=== PATIENT | female | born 1985 | race Caucasian/White ===

== ENCOUNTER → 2018-04-20 | Outpatient (CLI) | payer OTHER ==
[~2018-04-20] MED LIST: OMNIPAQUE 350 MG/ML, 100ML BOTTLE ONE
== END | disposition home or self-care (01) ==
LOC: CFH 12:44
PROVIDERS: ATTEND Nurse Practitioner Family
DX: N85.2 Hypertrophy of uterus (principal); N13.30 Unspecified hydronephrosis; N28.1 Cyst of kidney, acquired; N83.201 Unspecified ovarian cyst, right side; N83.202 Unspecified ovarian cyst, left side
CPT/HCPCS: 74177; Q9967

== ENCOUNTER → 2018-05-03 | Outpatient (CLI) | payer OTHER ==
[~2018-05-03] MED LIST changes: +Auryxia PO; +HYDR-3653 PO; -OMNIPAQUE 350 MG/ML, 100ML BOTTLE ONE; +ONDA4TAB12 PO
[2018-05-03 12:48] LABS: BASOPHILS # (AUTO) 0.04 x10^3/uL (0-0.1); BASOPHILS % (AUTO) 1 % (0-1); EOSINOPHILS % (AUTO) 4 % (1-7); LYMPHOCYTES # (AUTO) 2.74 x10^3/uL (1-3.4); LYMPHOCYTES % (AUTO) 40 % (22-44); MD NO; MEAN CORPUSCULAR HEMOGLOBIN 24.4 pg (27.0-34.8); MEAN CORPUSCULAR HGB CONC 31.9 g/dL (32.4-35.8); MEAN CORPUSCULAR VOLUME 76.5 fL (80-100); MEAN PLATELET VOLUME 8.9 fL (7.4-10.4); MONOCYTES % (AUTO) 10 % (2-9); NEUTROPHILS # (AUTO) 3.12 x10^3/uL (1.8-6.8); NEUTROPHILS % (AUTO) 45 % (42-75); PLATELET COUNT 359 x10^3/uL (130-400); RED BLOOD COUNT 4.74 x10^6/uL (3.82-5.3); RED CELL DISTRIBUTION WIDTH 16.7 % (9.6-15.2)
[2018-05-03 12:53] LABS: INTERNATIONAL NORMALIZED RATIO 1.18 (0.93-1.1); PROTHROMBIN TIME 12.1 Seconds (9.6-11.5)
[2018-05-03 12:55] LABS: ANION GAP 7 mmol/L (5-15); CALCIUM 8.9 mg/dL (8.5-10.1); CHLORIDE 109 mmol/L (98-107)
[2018-05-03 13:04] LABS: ALANINE AMINOTRANSFERASE 21 U/L (12-78); ALKALINE PHOSPHATASE 49 U/L (45-117); BILIRUBIN,TOTAL 0.2 mg/dL (0.2-1.0)
== END | disposition home or self-care (01) ==
LOC: STAR 11:23
PROVIDERS: ATTEND Specialist
DX: Z01.818 Encounter for other preprocedural examination (principal); C55 Malignant neoplasm of uterus, part unspecified; D75.9 Disease of blood and blood-forming organs, unspecified
CPT/HCPCS: 36415; 80053; 83615; 84702; 85025; 85610; 85730

== ENCOUNTER → 2018-05-03 | Outpatient (CLI) | payer OTHER | END | disposition home or self-care (01) | LOC: CFH 12:58 | PROVIDERS: ATTEND Specialist | DX: C49.9 Malignant neoplasm of connective and soft tissue, unspecified (principal) | CPT/HCPCS: 71046 ==

== ENCOUNTER → 2018-05-06 | Outpatient (CLI) | payer OTHER ==
[~2018-05-06] MED LIST changes: +GADOBUTROL 10 MMOL/10 ML VIAL ONE
== END | disposition home or self-care (01) ==
LOC: RAD 10:29
PROVIDERS: ATTEND Specialist
DX: N13.30 Unspecified hydronephrosis (principal); Q61.01 Congenital single renal cyst
CPT/HCPCS: 72197; 74183; A9585

== ENCOUNTER 2018-05-10 09:14 | Inpatient (IN) | payer OTHER ==
[~2018-05-10] VITALS: Ht 167.6 cm; Wt 59.2 kg
[~2018-05-10 09:14] MED LIST changes: -GADOBUTROL 10 MMOL/10 ML VIAL ONE; -HYDR-3653 PO; -ONDA4TAB12 PO
[2018-05-10] MEDS ORDERED: FENTANYL PF 250 MCG/5ML ONE (10:19)
[2018-05-10] MEDS ORDERED: LACTATED RINGERS 1,000 ML IV SCH (10:21)
[2018-05-10] MEDS ORDERED: ACETAMINOPHEN 500 MG TABLET PO ONE (10:30)
[2018-05-10] MEDS ORDERED: SCOPOLAMINE PATCH, 1.5MG PATCH.TD72 TD ONE (10:30)
[2018-05-10] MEDS ORDERED: GABAPENTIN 300 MG CAPSULE PO ONE (10:30)
[2018-05-10] MEDS ORDERED: OXYcodone 5 MG/5 ML ORAL.SOL UDC PO PRN (11:00)
[2018-05-10] MEDS ORDERED: LABETALOL 5MG/ML, 20ML IV PRN (11:00)
[2018-05-10] MEDS ORDERED: HALOPERIDOL 5 MG/ML IV PRN (11:00)
[2018-05-10] MEDS ORDERED: PROCHLORPERAZINE 5 MG/ML, 2ML IV PRN (11:00)
[2018-05-10] MEDS ORDERED: hydrALAzine 20 MG/ML, 1ML IV PRN (11:00)
[2018-05-10] MEDS ORDERED: HYDROmorphone 1 MG/ML, 1ML IV PRN (11:00)
[2018-05-10] MEDS ORDERED: DIPHENHYDRAMINE 50 MG/ML, 1ML IVPush PRN (11:00)
[2018-05-10] MEDS ORDERED: MEPERIDINE/PF 25MG/0.5ML IVPush PRN (11:00)
[2018-05-10] MEDS ORDERED: VASOPRESSIN 20 UNIT/ML, 1ML ONE (11:45)
[2018-05-10] MEDS ORDERED: KETOROLAC 30 MG/1 ML IVPush PRN (14:00)
[2018-05-10] MEDS ORDERED: FENTANYL PF 100 MCG/2ML ONE (14:22)
[2018-05-10] MEDS ORDERED: OXYcodone 5 MG/5 ML ORAL.SOL UDC ONE (14:22)
[2018-05-10] MEDS ORDERED: KETOROLAC 30 MG/1 ML ONE (14:22)
[2018-05-10] MEDS: FENTANYL PF 100 MCG/2ML IV PRN ×2 (14:26→14:38)
[2018-05-10] MEDS ORDERED: morphine SULFATE 10 MG/ML, 1ML IV PRN (15:30)
[2018-05-10] MEDS ORDERED: POTASSIUM CHLORIDE 20 MEQ in D5%-0.45% NACL 1,000 ML IV SCH (15:30)
[2018-05-10] MEDS ORDERED: ONDANSETRON 2MG/ML, 2ML IV PRN (15:30)
[2018-05-10 17:18] VITALS: BP 106/64
[2018-05-10] MEDS ORDERED: KETOROLAC 30 MG/1 ML IV PRN (20:30)
[2018-05-10 20:59] VITALS: BP 119/73
[2018-05-11 00:09] VITALS: BP 99/62
[2018-05-11 04:55] VITALS: BP 106/58
[2018-05-11 05:11] VITALS: BP 113/62
[2018-05-11 05:28] LABS: BASOPHILS # (AUTO) 0.02 x10^3/uL (0-0.1); BASOPHILS % (AUTO) 0 % (0-1); EOSINOPHILS % (AUTO) 0 % (1-7); LYMPHOCYTES # (AUTO) 1.79 x10^3/uL (1-3.4); LYMPHOCYTES % (AUTO) 17 % (22-44); MD SCAN; MEAN CORPUSCULAR HEMOGLOBIN 25.3 pg (27.0-34.8); MEAN CORPUSCULAR HGB CONC 31.7 g/dL (32.4-35.8); MEAN PLATELET VOLUME 9.3 fL (7.4-10.4); MONOCYTES # (AUTO) 0.99 x10^3/uL (0.2-0.8); MONOCYTES % (AUTO) 10 % (2-9); NEUTROPHILS # (AUTO) 7.57 x10^3/uL (1.8-6.8); NEUTROPHILS % (AUTO) 73 % (42-75); PLATELET COUNT 280 x10^3/uL (130-400); RED BLOOD COUNT 4.14 x10^6/uL (3.82-5.3); RED CELL DISTRIBUTION WIDTH 23.2 % (9.6-15.2)
[2018-05-11 05:35] LABS: ANION GAP 7 mmol/L (5-15); CALCIUM 8.7 mg/dL (8.5-10.1); CHLORIDE 105 mmol/L (98-107); CREATININE 0.85 mg/dL (0.55-1.02)
[2018-05-11 07:42] VITALS: BP 105/65
[2018-05-11 12:35] VITALS: BP 97/61
[2018-05-11 20:26] VITALS: BP 105/73
[2018-05-12 03:30] VITALS: BP 104/66
[2018-05-12 05:23] LABS: MEAN CORPUSCULAR HEMOGLOBIN 25.8 pg (27.0-34.8); MEAN CORPUSCULAR HGB CONC 31.8 g/dL (32.4-35.8); MEAN CORPUSCULAR VOLUME 81.2 fL (80-100); MEAN PLATELET VOLUME 9.2 fL (7.4-10.4); PLATELET COUNT 222 x10^3/uL (130-400); RED BLOOD COUNT 3.39 x10^6/uL (3.82-5.3); RED CELL DISTRIBUTION WIDTH 24.4 % (9.6-15.2)
[2018-05-12 05:35] LABS: CHLORIDE 107 mmol/L (98-107)
[2018-05-12 05:41] LABS: ANION GAP 7 mmol/L (5-15); CALCIUM 8.2 mg/dL (8.5-10.1); CREATININE 0.69 mg/dL (0.55-1.02)
[2018-05-12 05:52] LABS: BASOPHILS # (AUTO) 0.03 x10^3/uL (0-0.1); BASOPHILS % (AUTO) 0 % (0-1); EOSINOPHILS # (AUTO) 0.16 x10^3/uL (0-0.4); EOSINOPHILS % (AUTO) 2 % (1-7); LYMPHOCYTES # (AUTO) 2.94 x10^3/uL (1-3.4); LYMPHOCYTES % (AUTO) 36 % (22-44); MD SCAN; MONOCYTES # (AUTO) 0.77 x10^3/uL (0.2-0.8); MONOCYTES % (AUTO) 9 % (2-9); NEUTROPHILS # (AUTO) 4.35 x10^3/uL (1.8-6.8); NEUTROPHILS % (AUTO) 53 % (42-75)
[2018-05-12 07:30] VITALS: BP 119/75
[2018-05-12] MEDS ORDERED: HYDR-3653 PO (12:33)
[2018-05-12] MEDS ORDERED: ONDA4TAB12 PO (12:34)
[2018-05-12 13:05] VITALS: BP 107/70
== END 2018-05-12 15:30 | disposition home or self-care (01) | DRG 742 ==
LOC: ORIP 10:06 → 4NOR 15:05 → DCLOUNGE 05-12 15:14
PROVIDERS: ADMIT Specialist; ATTEND Specialist
PROC: 3E0T3BZ Introduction of Anesthetic Agent into Peripheral Nerves and Plexi, Percutaneous Approach (ICD-10-PCS; 2018-05-10)
PROC: 0UB90ZZ Excision of Uterus, Open Approach (ICD-10-PCS; principal; 2018-05-10 11:30)
DX: D25.2 Subserosal leiomyoma of uterus (principal); C49.9 Malignant neoplasm of connective and soft tissue, unspecified; N85.2 Hypertrophy of uterus; N83.201 Unspecified ovarian cyst, right side; N83.202 Unspecified ovarian cyst, left side; N28.1 Cyst of kidney, acquired; D72.829 Elevated white blood cell count, unspecified; Z80.8 Family history of malignant neoplasm of other organs or systems
CPT/HCPCS: 36415; 80048; 81025; 85025; 86850; 86900; 86923; 88305; G0378; J1885; J3010; C1765; J7120